=== PATIENT | male | born 1935 | race African-American/Black ===

== ENCOUNTER 2018-04-09 07:24 | Observation (INO) | payer MEDICARE, OTHER ==
[~2018-04-09] VITALS: Ht 167.6 cm; Wt 124.6 kg
[2018-04-09] MEDS ORDERED: ASPIRIN 81 MG TABLET CHEW ONE ×2 (07:40→08:01)
[2018-04-09] MEDS ORDERED: FUROSEMIDE 40 MG/4 ML ONE (07:40)
[2018-04-09] MEDS ORDERED: PLEASE ENTER ALLERGIES MC SCH (08:00)
[2018-04-09] MEDS ORDERED: ASPIRIN 81 MG TABLET CHEW PO ONE (08:00)
[2018-04-09] MEDS ORDERED: SODIUM CHLORIDE FLUSH 10ML SYR IVF ONE (08:00)
[2018-04-09] MEDS ORDERED: FUROSEMIDE 40 MG/4 ML IVP ONE (08:00)
[2018-04-09 08:04] LABS: ALANINE AMINOTRANSFERASE 37 U/L (12-78); ALBUMIN 3.1 g/dL (3.4-5.0); ANION GAP 12 mmol/L (5-15); CALCIUM 8.9 mg/dL (8.5-10.1); CHLORIDE 115 mmol/L (98-107); CREATININE 1.39 mg/dL (0.7-1.3)
[2018-04-09] MEDS ORDERED: ALBUTEROL SULFATE 2.5 MG/3 ML ONE (08:04)
[2018-04-09 08:08] LABS: ALKALINE PHOSPHATASE 154 U/L (45-117); BILIRUBIN,TOTAL 1.4 mg/dL (0.2-1.0); TOTAL PROTEIN 8.4 g/dL (6.4-8.2); TROPONIN I 0.029 ng/mL (0.000-0.045)
[2018-04-09] MEDS ORDERED: ALBUTEROL SULFATE 2.5 MG/3 ML NPPB ONE (08:20)
[2018-04-09 08:32] LABS: MEAN CORPUSCULAR HEMOGLOBIN 31.5 pg (27.5-34.5); MEAN CORPUSCULAR HGB CONC 31.7 g/dL (33.2-36.2); MEAN CORPUSCULAR VOLUME 99.2 fL (81-97); MEAN PLATELET VOLUME 8.3 fL (7.4-10.4); PLATELET COUNT 289 x10^3/uL (130-400); RED BLOOD COUNT 3.89 x10^6/uL (4.38-5.82); RED CELL DISTRIBUTION WIDTH 14.5 % (9.4-14.8)
[2018-04-09] MEDS ORDERED: CEFTRIAXONE 1,000 MG in SODIUM CHLORIDE 0.9% 50 ML IV ONE (09:00)
[2018-04-09] MEDS ORDERED: AZITHROMYCIN 500 MG in SODIUM CHLORIDE 0.9% 250 ML IV ONE (09:00)
[2018-04-09 09:09] LABS: BASOPHILS # (AUTO) 0.01 x10^3/uL (0-0.1); BASOPHILS % (AUTO) 0 % (0-1); EOSINOPHILS # (AUTO) 0.02 x10^3/uL (0-0.4); EOSINOPHILS % (AUTO) 0 % (1-7); LYMPHOCYTES # (AUTO) 0.85 x10^3/uL (1-3.4); LYMPHOCYTES % (AUTO) 5 % (22-44); MD SCAN; MONOCYTES # (AUTO) 0.63 x10^3/uL (0.2-0.8); MONOCYTES % (AUTO) 4 % (2-9); NEUTROPHILS % (AUTO) 92 % (42-75)
[2018-04-09] MEDS ORDERED: CEFTRIAXONE PMX 1GM/50ML 50 ML ONE (09:09)
[2018-04-09] MEDS ORDERED: OMNIPAQUE 350 MG/ML, 100ML BOTTLE ONE (10:11)
[2018-04-09] MEDS ORDERED: METO-95 PO (10:20)
[2018-04-09] MEDS ORDERED: NIFE20CA PO (10:20)
[2018-04-09] MEDS ORDERED: CHOL2000 PO (10:20)
[2018-04-09] MEDS ORDERED: PANT20TA3 PO (10:20)
[2018-04-09] MEDS ORDERED: LISI40TA PO (10:20)
[2018-04-09] MEDS ORDERED: ASPI-496 PO (10:20)
[2018-04-09] MEDS ORDERED: POTA20TA14 PO (10:20)
[2018-04-09] MEDS ORDERED: PRAZ5CAP2 PO (10:20)
[2018-04-09] MEDS ORDERED: ALLO300T PO (10:20)
[2018-04-09] MEDS ORDERED: CLOP75TA52 PO (10:20)
[2018-04-09] MEDS ORDERED: FURO40TA6 PO (10:20)
[2018-04-09] MEDS ORDERED: ATOR40TA78 PO (10:20)
[2018-04-09] MEDS ORDERED: clonidine TD (10:20)
[2018-04-09] MEDS ORDERED: ACETAMINOPHEN 325 MG TABLET PO PRN (12:00)
[2018-04-09] MEDS ORDERED: hydrALAzine 20 MG/ML, 1ML IVPush PRN (12:00)
[2018-04-09] MEDS ORDERED: BISACODYL 10 MG SUPP PR PRN (12:00)
[2018-04-09] MEDS ORDERED: ONDANSETRON ODT 4 MG PO PRN (12:00)
[2018-04-09] MEDS ORDERED: DOCUSATE 100 MG CAPSULE PO PRN (12:00)
[2018-04-09] MEDS ORDERED: POLYETHYLENE GLYCOL 17 GM PACKET PO PRN (12:00)
[2018-04-09] MEDS ORDERED: ONDANSETRON 2MG/ML, 2ML IVPush PRN (12:00)
[2018-04-09] MEDS ORDERED: LABETALOL 5MG/ML, 20ML IVPush PRN (12:00)
[2018-04-09 12:14] VITALS: BP 162/79
[2018-04-09] MEDS ORDERED: DEXTROSE 50%, 50ML SYRINGE IVPush PRN (12:30)
[2018-04-09] MEDS ORDERED: GLUCAGON 1 MG IM PRN (12:30)
[2018-04-09] MEDS ORDERED: DEXTROSE 4 GM TAB.CHEW PO PRN (12:30)
[2018-04-09 13:29] VITALS: BP 162/79
[2018-04-09] MEDS: FUROSEMIDE 40 MG/4 ML IV SCH (18:21)
[2018-04-09] MEDS: HEPARIN 5,000 UNITS/ML, 1ML SQ SCH (18:22)
[2018-04-09] MEDS: INSULIN LISPRO 100 UNITS/ML, PEN SQ-INSULIN SCH ×2 (18:22→21:04)
[2018-04-09 20:42] VITALS: BP 158/75
[2018-04-09] MEDS: POTASSIUM CHLORIDE 20 MEQ TAB.ER.PRT PO SCH (21:04)
[2018-04-09] MEDS: ATORVASTATIN 40 MG TABLET PO SCH (21:04)
[2018-04-09] MEDS: SODIUM CHLORIDE FLUSH 10ML SYR IVF SCH (21:04)
[2018-04-09] MEDS: METOPROLOL SUCCINATE 100 MG TAB.ER.24H PO SCH (21:04)
[2018-04-09] MEDS: PANTOPRAZOLE 20MG TABLET PO SCH (21:05)
[2018-04-09] MEDS: LISINOPRIL 20 MG TABLET PO SCH (21:05)
[2018-04-10] MEDS: HEPARIN 5,000 UNITS/ML, 1ML SQ SCH ×3 (01:03→17:00)
[2018-04-10 03:47] VITALS: BP 160/88
[2018-04-10 04:59] LABS: MEAN CORPUSCULAR HGB CONC 33.1 g/dL (33.2-36.2); MEAN CORPUSCULAR VOLUME 99.7 fL (81-97); MEAN PLATELET VOLUME 8.3 fL (7.4-10.4); PLATELET COUNT 271 x10^3/uL (130-400); RED BLOOD COUNT 3.61 x10^6/uL (4.38-5.82); RED CELL DISTRIBUTION WIDTH 14.4 % (9.4-14.8)
[2018-04-10 05:04] LABS: CHLORIDE 111 mmol/L (98-107)
[2018-04-10 05:16] LABS: ALANINE AMINOTRANSFERASE 32 U/L (12-78); ALBUMIN 2.9 g/dL (3.4-5.0); ALKALINE PHOSPHATASE 136 U/L (45-117); ANION GAP 11 mmol/L (5-15); BILIRUBIN,TOTAL 0.8 mg/dL (0.2-1.0); CALCIUM 8.8 mg/dL (8.5-10.1); CREATININE 1.64 mg/dL (0.7-1.3); TOTAL PROTEIN 7.9 g/dL (6.4-8.2)
[2018-04-10 05:46] LABS: MD YES
[2018-04-10 06:18] LABS: <PLATELET ESTIMATE> ADEQUATE; <PLT MORPHOLOGY> NORMAL PLT MORPH; <RBC MORPHOLOGY> NORMAL; LYMPH#(MANUAL) 2.25 x10^3/uL (1-3.4); LYMPHS% (MANUAL) 10 % (22-44); METAMYELOCYTES% (MANUAL) 4 % (0-1); MONOS#(MANUAL) 0.45 x10^3/uL (0.3-2.7); MONOS% (MANUAL) 2 % (2-9); SEGS% (MANUAL) 84 % (42-75)
[2018-04-10] MEDS: FUROSEMIDE 40 MG/4 ML IV SCH ×2 (07:30→17:15)
[2018-04-10 07:33] VITALS: BP 178/79
[2018-04-10] MEDS: METOPROLOL SUCCINATE 100 MG TAB.ER.24H PO SCH ×2 (07:37→21:31)
[2018-04-10] MEDS: CHOLECALCIFEROL 1,000 UNIT TABLET PO SCH (07:37)
[2018-04-10] MEDS: POTASSIUM CHLORIDE 20 MEQ TAB.ER.PRT PO SCH ×3 (07:37→21:31)
[2018-04-10] MEDS: ASPIRIN 81 MG TABLET EC PO SCH (07:37)
[2018-04-10] MEDS: CLOPIDOGREL 75 MG TABLET PO SCH (07:37)
[2018-04-10] MEDS: niFEDipine ER 60 MG TABLET.ER PO SCH (07:38)
[2018-04-10] MEDS: LISINOPRIL 20 MG TABLET PO SCH (07:38)
[2018-04-10] MEDS: SODIUM CHLORIDE FLUSH 10ML SYR IVF SCH ×2 (07:38→21:32)
[2018-04-10] MEDS: PANTOPRAZOLE 20MG TABLET PO SCH ×2 (07:38→21:32)
[2018-04-10] MEDS: INSULIN LISPRO 100 UNITS/ML, PEN SQ-INSULIN SCH ×4 (07:39→21:29)
[2018-04-10] MEDS ORDERED: CEFTRIAXONE 1,000 MG in SODIUM CHLORIDE 0.9% 50 ML IV SCH (09:00)
[2018-04-10] MEDS ORDERED: ALLOPURINOL 300 MG TABLET PO SCH (09:00)
[2018-04-10] MEDS ORDERED: AZITHROMYCIN 500 MG in SODIUM CHLORIDE 0.9% 250 ML IV SCH (10:30)
[2018-04-10] MEDS ORDERED: PHARMACY MAY ADJ FOR RENAL FX MC PRN (10:30)
[2018-04-10 12:50] VITALS: BP 157/76
[2018-04-10 19:56] LABS: HEMOGLOBIN A1C 6.5 % (4.2-6.3)
[2018-04-10] MEDS ORDERED: PRAZOSIN 5 MG CAPSULE PO SCH (21:00)
[2018-04-10] MEDS: ATORVASTATIN 40 MG TABLET PO SCH (21:31)
[2018-04-10 21:32] VITALS: BP 163/78
[2018-04-11] MEDS: HEPARIN 5,000 UNITS/ML, 1ML SQ SCH ×2 (01:00→09:25)
[2018-04-11 03:14] VITALS: BP 156/74
[2018-04-11 05:15] LABS: ALBUMIN 2.6 g/dL (3.4-5.0); ANION GAP 10 mmol/L (5-15); CALCIUM 8.5 mg/dL (8.5-10.1); CHLORIDE 113 mmol/L (98-107)
[2018-04-11 05:22] LABS: ALANINE AMINOTRANSFERASE 46 U/L (12-78); ALKALINE PHOSPHATASE 124 U/L (45-117); BILIRUBIN,TOTAL 0.7 mg/dL (0.2-1.0); CREATININE 1.84 mg/dL (0.7-1.3); TOTAL PROTEIN 7.4 g/dL (6.4-8.2)
[2018-04-11 06:11] LABS: MEAN CORPUSCULAR HEMOGLOBIN 32.1 pg (27.5-34.5); MEAN CORPUSCULAR HGB CONC 32.1 g/dL (33.2-36.2); MEAN CORPUSCULAR VOLUME 99.9 fL (81-97); MEAN PLATELET VOLUME 8.5 fL (7.4-10.4); PLATELET COUNT 280 x10^3/uL (130-400); RED BLOOD COUNT 3.59 x10^6/uL (4.38-5.82); RED CELL DISTRIBUTION WIDTH 14.3 % (9.4-14.8)
[2018-04-11 06:12] LABS: MD YES
[2018-04-11 06:16] LABS: LYMPH#(MANUAL) 1.21 x10^3/uL (1-3.4); LYMPHS% (MANUAL) 8 % (22-44); MONOS#(MANUAL) 1.36 x10^3/uL (0.3-2.7); MONOS% (MANUAL) 9 % (2-9); SEG#(MANUAL) 12.53 x10^3/uL (1.8-6.8); SEGS% (MANUAL) 83 % (42-75)
[2018-04-11 06:17] LABS: POLYCHROMASIA 1+
[2018-04-11 06:18] LABS: <PLATELET ESTIMATE> ADEQUATE; <PLT MORPHOLOGY> NORMAL PLT MORPH
[2018-04-11 06:49] VITALS: BP 157/72
[2018-04-11] MEDS: INSULIN LISPRO 100 UNITS/ML, PEN SQ-INSULIN SCH ×2 (07:00→12:06)
[2018-04-11] MEDS: FUROSEMIDE 40 MG/4 ML IV SCH (07:30)
[2018-04-11] MEDS ORDERED: CEFD300C37 PO (08:45)
[2018-04-11] MEDS ORDERED: ALLOPURINOL 100 MG TABLET PO SCH (09:00)
[2018-04-11] MEDS ORDERED: FUROSEMIDE 40 MG TABLET PO SCH (09:00)
[2018-04-11] MEDS: SODIUM CHLORIDE FLUSH 10ML SYR IVF SCH (09:00)
[2018-04-11] MEDS ORDERED: AZITHROMYCIN 500 MG TABLET PO ONE (09:00)
[2018-04-11] MEDS ORDERED: CEFDINIR 300 MG CAPSULE PO SCH (09:00)
[2018-04-11] MEDS: ASPIRIN 81 MG TABLET EC PO SCH (09:22)
[2018-04-11] MEDS: POTASSIUM CHLORIDE 20 MEQ TAB.ER.PRT PO SCH (09:23)
[2018-04-11] MEDS: PANTOPRAZOLE 20MG TABLET PO SCH (09:24)
[2018-04-11] MEDS: niFEDipine ER 60 MG TABLET.ER PO SCH (09:24)
[2018-04-11] MEDS: METOPROLOL SUCCINATE 100 MG TAB.ER.24H PO SCH (09:24)
[2018-04-11] MEDS: CLOPIDOGREL 75 MG TABLET PO SCH (09:24)
[2018-04-11] MEDS: CHOLECALCIFEROL 1,000 UNIT TABLET PO SCH (09:25)
[2018-04-11 12:30] VITALS: BP 147/72
== END 2018-04-11 14:19 | disposition home or self-care (01) ==
LOC: ED 09:47 → EDIP 09:48 → INTOOBSV 09:48 → ED 10:00 → 3NE 11:27
PROVIDERS: ADMIT Internal Medicine; ATTEND Internal Medicine
DX: J96.21 Acute and chronic respiratory failure with hypoxia (principal); I11.0 Hypertensive heart disease with heart failure; I50.1 Left ventricular failure, unspecified; D72.829 Elevated white blood cell count, unspecified; I25.10 Atherosclerotic heart disease of native coronary artery without angina pectoris; E11.65 Type 2 diabetes mellitus with hyperglycemia; E66.01 Morbid (severe) obesity due to excess calories; E86.0 Dehydration; G47.33 Obstructive sleep apnea (adult) (pediatric); I35.8 Other nonrheumatic aortic valve disorders; K80.20 Calculus of gallbladder without cholecystitis without obstruction; Z83.3 Family history of diabetes mellitus; Z95.1 Presence of aortocoronary bypass graft; Z98.61 Coronary angioplasty status
CPT/HCPCS: 36415; 71045; 71275; 80053; 82962; 83036; 83605; 83880; 84145; 84484; 85025; 85379; 87040; 93005; 93306; 94640; 96365; 96366; 96367; 96372; 96375; 96376; 99285; G0378; J0456; J0696; J1644; J1815; J1940; J7050; J7512; J7613; Q9967